=== PATIENT | male | born 2000 | race Caucasian/White ===

== ENCOUNTER 2021-10-11 00:43 | Emergency (ER) | payer OTHER ==
[2021-10-11] MEDS ORDERED: IBUPROFEN600 MG PO (01:28)
== END 2021-10-11 01:30 | disposition home or self-care (01) ==
LOC: ER1 00:43
DX: S90.01XA Contusion of right ankle, initial encounter (principal); F17.290 Nicotine dependence, other tobacco product, uncomplicated; W21.32XA Struck by skate blades, initial encounter; Y92.830 Public park as the place of occurrence of the external cause
CPT/HCPCS: 73610; 99283